=== PATIENT | male | born 1985 | race Two or more races ===

== ENCOUNTER → 2020-11-21 | Outpatient (CLI) | payer BC ==
[2020-11-21 12:49] LABS: BASOPHILS % 0.8 % (0.0-2.0); EOSINOPHILS % 0.8 % (0.0-5.0); HEMATOCRIT. 45.8 % (42.0-52.0); HEMOGLOBIN. 16.5 g/dL (14.0-18.0); LYMPHOCYTES % 35.3 % (20.0-50.0); MEAN CORPUSCULAR HEMOGLOBIN 32.4 pg (28.0-32.0); MEAN CORPUSCULAR VOLUME 90.1 fL (80.0-94.0); MEAN PLATELET VOLUME 7.3 fl (7.4-10.4); MONOCYTES % 5.2 % (2.0-8.0); NEUTROPHILS % 57.9 % (40.0-76.0); PLATELET 302 x1000/uL (130-400); RED BLOOD CELL COUNT 5.08 mill/uL (4.7-6.1); RED CELL DISTRIBUTION WIDTH 12.5 % (11.6-14.6)
[2020-11-21 13:03] LABS: CHLORIDE 106 mEq/L (98-107)
[2020-11-21 13:11] LABS: LDL CHOLESTEROL 137 mg/dL (5-100)
[2020-11-21 13:12] LABS: HDL CHOLESTEROL 56 mg/dL (40-59)
[2020-11-21 13:15] LABS: TOTAL IRON BINDING CAPACITY 328 ug/dL (250-450)
[2020-11-21 13:18] LABS: T4 FREE 1.05 ng/dL (0.76-1.46)
[2020-11-21 16:48] LABS: FOLIC ACID (FOLATE) SERUM 12.2 ng/mL (>5.38)
== END | disposition home or self-care (01) ==
LOC: LAB 11:10
PROVIDERS: ATTEND Family Medicine Adult Medicine
DX: Z00.00 Encounter for general adult medical examination without abnormal findings (principal)
CPT/HCPCS: 36415; 80053; 80061; 82607; 82728; 82746; 83036; 83540; 83550; 84439; 84443; 85025

== ENCOUNTER → 2021-03-21 | Outpatient (CLI) | payer BC ==
[2021-03-21 15:57] LABS: HEPATITIS B SURFACE ANTIGEN NEGATIVE
== END | disposition home or self-care (01) ==
LOC: LAB 14:28
PROVIDERS: ATTEND Family Medicine Adult Medicine
DX: R94.5 Abnormal results of liver function studies (principal)
CPT/HCPCS: 36415; 80061; 80076; 86705; 86709; 86803; 87340

== ENCOUNTER → 2021-05-10 | Outpatient (CLI) | payer BC | END | disposition home or self-care (01) | LOC: LAB 16:32 | PROVIDERS: ATTEND Family Medicine Adult Medicine | DX: R94.5 Abnormal results of liver function studies (principal) | CPT/HCPCS: 36415; 80076 ==

== ENCOUNTER → 2021-05-16 | Outpatient (CLI) | payer BC | END | disposition home or self-care (01) | LOC: US 07:29 | PROVIDERS: ATTEND Family Medicine Adult Medicine | DX: K76.0 Fatty (change of) liver, not elsewhere classified (principal); R94.5 Abnormal results of liver function studies | CPT/HCPCS: 76700 ==

== ENCOUNTER → 2021-07-31 | Outpatient (CLI) | payer BC | END | disposition home or self-care (01) | LOC: LAB 12:10 | PROVIDERS: ATTEND Family Medicine Adult Medicine | DX: E78.5 Hyperlipidemia, unspecified (principal); R94.5 Abnormal results of liver function studies | CPT/HCPCS: 36415; 80061; 80076 ==

== ENCOUNTER → 2021-09-19 | Outpatient (CLI) | payer BC | END | disposition home or self-care (01) | LOC: LAB 14:37 | PROVIDERS: ATTEND Family Medicine Adult Medicine | DX: E78.5 Hyperlipidemia, unspecified (principal); R94.31 Abnormal electrocardiogram [ECG] [EKG] | CPT/HCPCS: 36415; 80061; 80076 ==

== ENCOUNTER → 2022-08-22 | Outpatient (CLI) | payer BC ==
[2022-08-22 12:05] LABS: BASOPHILS % 0.8 % (0.0-2.0); EOSINOPHILS % 0.4 % (0.0-5.0); HEMATOCRIT. 44.1 % (42.0-52.0); LYMPHOCYTES % 35.5 % (20.0-50.0); MEAN CORPUSCULAR HEMOGLOBIN 31.6 pg (28.0-32.0); MEAN CORPUSCULAR VOLUME 92.5 fL (80.0-94.0); MEAN PLATELET VOLUME 7.1 fl (7.4-10.4); NEUTROPHILS % 57.3 % (40.0-76.0); PLATELET 310 x1000/uL (130-400); RED BLOOD CELL COUNT 4.77 mill/uL (4.7-6.1); RED CELL DISTRIBUTION WIDTH 12.5 % (11.6-14.6)
[2022-08-22 12:06] LABS: CLARITY URINE CLEAR (CLEAR); COLOR URINE YELLOW (YELLOW); KETONES URINE NEGATIVE (NEGATIVE); LEUKOCYTE ESTERASE URINE NEGATIVE (NEGATIVE); NITRITE URINE NEGATIVE (NEGATIVE); OCCULT BLOOD URINE NEGATIVE (NEGATIVE); PH URINE 5.5 (4.5-8.0); PROTEIN URINE NEGATIVE (NEGATIVE); SPECIFIC GRAVITY URINE 1.009 (1.005-1.030); UROBILINOGEN URINE 0.2 E.U./dL (0.2-1.0)
[2022-08-22 12:18] LABS: CHLORIDE 107 mEq/L (98-107)
[2022-08-22 12:34] LABS: HDL CHOLESTEROL 51 mg/dL (40-59); LDL CHOLESTEROL 122 mg/dL (5-100); T4 FREE 0.99 ng/dL (0.76-1.46)
[2022-08-22 19:08] LABS: FOLIC ACID (FOLATE) SERUM 16.5 ng/mL (>5.38)
== END | disposition home or self-care (01) ==
LOC: LAB 11:40
PROVIDERS: ATTEND Family Medicine Adult Medicine
DX: I10 Essential (primary) hypertension (principal); R94.5 Abnormal results of liver function studies; E78.5 Hyperlipidemia, unspecified
CPT/HCPCS: 36415; 80053; 80061; 81003; 82306; 82607; 82728; 82746; 83036; 83540; 84439; 84443; 84481; 85025

== ENCOUNTER 2024-04-02 21:40 | Emergency (ER) | payer BC | END 2024-04-02 21:59 | disposition left against medical advice (07) | LOC: ER 21:40 | DX: S89.90XA Unspecified injury of unspecified lower leg, initial encounter (principal); X58.XXXA Exposure to other specified factors, initial encounter; Y93.89 Activity, other specified; Y92.89 Other specified places as the place of occurrence of the external cause; Y99.8 Other external cause status; Z53.21 Procedure and treatment not carried out due to patient leaving prior to being seen by health care provider ==

== ENCOUNTER → 2024-04-13 | Outpatient (CLI) | payer BC ==
[2024-04-13 13:20] LABS: BASOPHILS % 0.8 % (0.0-2.0); EOSINOPHILS % 1.5 % (0.0-5.0); HEMATOCRIT. 42.5 % (42.0-52.0); HEMOGLOBIN. 14.7 g/dL (14.0-18.0); LYMPHOCYTES % 49.6 % (20.0-50.0); MEAN CORPUSCULAR HEMOGLOBIN 31.6 pg (28.0-32.0); MEAN CORPUSCULAR HGB CONC 34.5 g/dL (31.0-37.0); MEAN CORPUSCULAR VOLUME 91.6 fL (80.0-94.0); MEAN PLATELET VOLUME 6.7 fl (7.4-10.4); MONOCYTES % 7.6 % (2.0-8.0); NEUTROPHILS % 40.5 % (40.0-76.0); PLATELET 216 x1000/uL (130-400); RED BLOOD CELL COUNT 4.64 mill/uL (4.7-6.1); WHITE BLOOD COUNT 4.1 x1000/uL (4.5-11.0)
[2024-04-13 13:45] LABS: CHLORIDE 109 mEq/L (98-107); POTASSIUM 4.2 mEq/L (3.5-5.1); SODIUM 142 mEq/L (136-145)
[2024-04-13 13:46] LABS: CALCIUM 9.7 mg/dL (8.7-10.4); CARBON DIOXIDE 27 mEq/L (21-32)
[2024-04-13 13:50] LABS: IRON 109 ug/dL (65-175)
[2024-04-13 13:51] LABS: GLUCOSE 99 mg/dL (70-105)
[2024-04-13 13:52] LABS: LDL CHOLESTEROL 136 mg/dL (5-100); TRIGLYCERIDE 58 mg/dL (0-150); UREA NITROGEN BLOOD 15 mg/dL (9-23)
[2024-04-13 13:53] LABS: ALANINE AMINOTRANSFERASE 83 IU/L (10-49); ALBUMIN 4.6 g/dL (3.2-4.8); ASPARTATE AMINOTRANSFERASE 36 IU/L (<34); CHOLESTEROL 181 mg/dL (<200); FERRITIN 402 ng/mL (22-322); HDL CHOLESTEROL 36 mg/dL (>55)
[2024-04-13 13:54] LABS: BILIRUBIN TOTAL 1.1 mg/dL (0.1-1.0); PROTEIN TOTAL 7.6 g/dL (6.0-8.3); TOTAL IRON BINDING CAPACITY 273 ug/dl (250-425); VITAMIN B12 SERUM 739 pg/mL (211-911)
[2024-04-13 13:55] LABS: T4 FREE 1.46 ng/dL (0.89-1.76); THYROID STIMULATING HORMONE 0.69 uIU/mL (0.55-4.78)
[2024-04-13 14:01] LABS: CLARITY URINE CLEAR (CLEAR); COLOR URINE YELLOW (YELLOW); GLUCOSE URINE NEGATIVE (NEGATIVE); KETONES URINE NEGATIVE (NEGATIVE); LEUKOCYTE ESTERASE URINE NEGATIVE (NEGATIVE); NITRITE URINE NEGATIVE (NEGATIVE); OCCULT BLOOD URINE NEGATIVE (NEGATIVE); PROTEIN URINE NEGATIVE (NEGATIVE); SPECIFIC GRAVITY URINE 1.011 (1.005-1.030); UROBILINOGEN URINE 0.2 E.U./dL (0.2-1.0)
[2024-04-13 14:04] LABS: FOLIC ACID (FOLATE) SERUM 13.54 ng/mL (>5.38)
[2024-04-13 14:05] LABS: ERYTHROCYTE SEDIMENTATION RATE 3 mm/hr (0-15)
== END | disposition home or self-care (01) ==
LOC: LAB 12:45
PROVIDERS: ATTEND Family Medicine Adult Medicine
DX: Z00.00 Encounter for general adult medical examination without abnormal findings (principal); I10 Essential (primary) hypertension; E78.5 Hyperlipidemia, unspecified
CPT/HCPCS: 36415; 80053; 80061; 81003; 82306; 82607; 82728; 82746; 83036; 83540; 83550; 84439; 84443; 84481; 85025; 85651